=== PATIENT | female | born 2000 | race Caucasian/White ===

== ENCOUNTER 2023-05-09 10:21 | Emergency (ER) | payer OTHER ==
[2023-05-09] MEDS ORDERED: Ibuprofen 200 MG TAB ONE (10:45)
== END 2023-05-09 11:47 | disposition home or self-care (01) ==
LOC: CSHERS 10:21
DX: S62.336A Displaced fracture of neck of fifth metacarpal bone, right hand, initial encounter for closed fracture (principal); W22.8XXA Striking against or struck by other objects, initial encounter